=== PATIENT | female | born 1975 | race Caucasian/White ===

== ENCOUNTER 2016-08-27 14:06 | Emergency (ER) | payer OTHER ==
[~2016-08-27] VITALS: Ht 152.4 cm; Wt 84.4 kg
[~2016-08-27 14:06] MED LIST: AMOXICILLIN500 M3 PO; AMOXICILLIN500 MG PO; BUSPIRONE15 MG PO; CEPHALEXIN500 M1 PO; CIPROFLOXACIN500 MG PO; CLARITIN10 MG PO; CYCLOBENZAPRINE10 MG PO; CYCLOBENZAPRINE5 M3 PO; DOXYCYCLINE100 MG PO; EFFEXOR XR37.5 M1 PO; HORMONE PILL PO; HYDR12.5C PO; HYDROCHLOROTH12.5 M2 PO; HYDROCODONE BIT1 T11 PO; HYDROXYZINE HCL25 M1 PO; IBU800 M1 PO; INDOCIN50 MG PO; LIDEX0.05% T; MEDROL DOSEPAK4 MG PO; MOTRIN800 MG PO; MULTIVITAMIN FO1 CAP PO; Motrin,Rufen800 MG PO; NAPROSYN375 MG PO; NAPROSYN500 MG PO; NEURONTIN300 MG PO; NORCO 325 MG-51 TAB PO; PAXIL10 MG PO; PAXIL20 MG PO; PHENERGAN W/DM120 ML PO; PREDNICOT10 MG PO; PREDNISONE10 MG PO; PRILOSEC40 M1 PO; PRILOSEC40 MG PO; ULTRAM50 MG PO; VALIUM10 MG PO; VALIUM5 MG PO; VICO75300 PO; VICODIN 5/500 505 MG PO; VOLTAREN50 M1 PO; ZITHROMAX Z PA250 MG PO; ZOFRAN ODT4 MG SL; ZOLOFT25 MG PO; Zofran4 MG PO
[2016-08-27] MEDS ORDERED: BACLOFEN20 M1 PO (14:34)
[2016-08-27] MEDS ORDERED: ZYRTEC10 MG PO (16:25)
[2016-08-27] MEDS ORDERED: NAPROSYN500 MG PO (16:25)
[2016-08-27] MEDS ORDERED: CYCLOBENZAPRINE10 MG PO (16:25)
[2016-08-27] MEDS ORDERED: AMOXICILLIN500 M2 PO (16:25)
== END 2016-08-27 16:39 | disposition home or self-care (01) ==
LOC: ED 14:06
DX: S30.0XXA Contusion of lower back and pelvis, initial encounter (principal); J01.90 Acute sinusitis, unspecified; F17.200 Nicotine dependence, unspecified, uncomplicated; Z88.8 Allergy status to other drugs, medicaments and biological substances; Z88.6 Allergy status to analgesic agent; Z88.1 Allergy status to other antibiotic agents; Z91.013 Allergy to seafood; W10.9XXA Fall (on) (from) unspecified stairs and steps, initial encounter; Y93.89 Activity, other specified; Y92.89 Other specified places as the place of occurrence of the external cause; Y99.9 Unspecified external cause status

== ENCOUNTER 2016-11-17 20:52 | Emergency (ER) | payer OTHER ==
[~2016-11-17] VITALS: Wt 85.7 kg
[~2016-11-17 20:52] MED LIST changes: +AMOXICILLIN500 M2 PO; +BACLOFEN20 M1 PO; +ZYRTEC10 MG PO
[2016-11-17] MEDS ORDERED: HYDROCODONE BIT1 T11 PO (23:33)
[2016-11-17] MEDS ORDERED: ZOFRAN ODT4 MG SL (23:33)
[2016-11-17] MEDS ORDERED: CYCLOBENZAPRINE5 M3 PO (23:33)
== END 2016-11-18 01:58 | disposition home or self-care (01) ==
LOC: ED 20:52
DX: M54.16 Radiculopathy, lumbar region (principal); F17.200 Nicotine dependence, unspecified, uncomplicated; Z88.1 Allergy status to other antibiotic agents; Z91.013 Allergy to seafood; Z88.6 Allergy status to analgesic agent; Z79.899 Other long term (current) drug therapy

== ENCOUNTER 2017-01-10 16:57 | Emergency (ER) | payer OTHER ==
[~2017-01-10] VITALS: Wt 82.6 kg
[2017-01-10] MEDS ORDERED: CYCLOBENZAPRINE5 M3 PO (18:54)
== END 2017-01-10 17:24 | disposition home or self-care (01) ==
LOC: ED 16:57
DX: M54.30 Sciatica, unspecified side (principal); R60.0 Localized edema; F17.200 Nicotine dependence, unspecified, uncomplicated; Z88.1 Allergy status to other antibiotic agents; Z88.6 Allergy status to analgesic agent; Z91.013 Allergy to seafood; Z79.899 Other long term (current) drug therapy

== ENCOUNTER 2018-06-27 21:10 | Emergency (ER) | payer OTHER ==
[2018-06-27 22:32] LABS: BILIRUBIN NEGATIVE (NEGATIVE); BLOOD NEGATIVE (NEGATIVE); CLARITY CLEAR (CLEAR); COLOR YELLOW (YELLOW); GLUCOSE NEGATIVE (NEGATIVE); KETONE NEGATIVE (NEGATIVE); LEUKO ESTERASE NEGATIVE (NEGATIVE); NITRITE NEGATIVE (NEGATIVE); UROBILINOGEN 0.2 E.U./dl (0.2-1.0)
[2018-06-27 23:03] LABS: EPITHELIAL CELLS 15-20
[2018-06-27] MEDS ORDERED: NAPROSYN500 MG PO (23:23)
[2018-06-27] MEDS ORDERED: CYCLOBENZAPRINE5 M3 PO (23:23)
== END 2018-06-27 23:54 | disposition home or self-care (01) ==
LOC: ED 21:10
PROVIDERS: Emergency Medicine Emergency Medical Services
DX: M25.552 Pain in left hip (principal); M19.90 Unspecified osteoarthritis, unspecified site; M79.7 Fibromyalgia; F17.200 Nicotine dependence, unspecified, uncomplicated; G89.29 Other chronic pain; M54.5 Low back pain; Z88.1 Allergy status to other antibiotic agents; Z91.013 Allergy to seafood; Z88.6 Allergy status to analgesic agent; Z79.899 Other long term (current) drug therapy; Z88.8 Allergy status to other drugs, medicaments and biological substances

== ENCOUNTER 2019-01-30 15:18 | Emergency (ER) | payer OTHER ==
[~2019-01-30] VITALS: Ht 152.4 cm; Wt 73.5 kg
[2019-01-30] MEDS ORDERED: TRAZODONE50 MG PO (15:30)
[2019-01-30] MEDS ORDERED: ADDERALL XR 3030 MG PO (15:31)
[2019-01-30] MEDS ORDERED: NAPROSYN500 MG PO (17:20)
== END 2019-01-30 17:32 | disposition home or self-care (01) ==
LOC: ED 15:18
DX: S86.912A Strain of unspecified muscle(s) and tendon(s) at lower leg level, left leg, initial encounter (principal); F17.200 Nicotine dependence, unspecified, uncomplicated; Z88.1 Allergy status to other antibiotic agents; Z91.013 Allergy to seafood; Z88.6 Allergy status to analgesic agent; Z79.899 Other long term (current) drug therapy; W01.0XXA Fall on same level from slipping, tripping and stumbling without subsequent striking against object, initial encounter; Y93.89 Activity, other specified; Y92.89 Other specified places as the place of occurrence of the external cause; Y99.8 Other external cause status

== ENCOUNTER → 2019-01-31 | Outpatient (CLI) | payer OTHER ==
[~2019-01-31] MED LIST changes: +ADDERALL XR 3030 MG PO; +TRAZODONE50 MG PO
== END | disposition home or self-care (01) ==
LOC: ORTHO 09:56
DX: M25.552 Pain in left hip (principal)

== ENCOUNTER 2019-02-10 19:52 | Emergency (ER) | payer OTHER ==
[~2019-02-10] VITALS: Wt 81.6 kg
== END 2019-02-10 21:21 | disposition home or self-care (01) ==
LOC: ED 19:52
DX: S93.402A Sprain of unspecified ligament of left ankle, initial encounter (principal); M79.7 Fibromyalgia; G89.29 Other chronic pain; Z88.1 Allergy status to other antibiotic agents; Z91.013 Allergy to seafood; Z88.6 Allergy status to analgesic agent; Z79.899 Other long term (current) drug therapy; W23.0XXA Caught, crushed, jammed, or pinched between moving objects, initial encounter; Y93.89 Activity, other specified; Y92.89 Other specified places as the place of occurrence of the external cause; Y99.8 Other external cause status

== ENCOUNTER 2019-05-04 21:04 | Emergency (ER) | payer OTHER ==
[~2019-05-04] VITALS: Ht 152.4 cm; Wt 79.8 kg
[2019-05-05] MEDS ORDERED: CYCLOBENZAPRINE10 MG PO (00:50)
[2019-05-05] MEDS ORDERED: IBU800 MG PO (00:50)
== END 2019-05-05 02:02 | disposition home or self-care (01) ==
LOC: ED 21:04
DX: S39.012A Strain of muscle, fascia and tendon of lower back, initial encounter (principal); S70.02XA Contusion of left hip, initial encounter; M79.7 Fibromyalgia; F17.200 Nicotine dependence, unspecified, uncomplicated; Z88.1 Allergy status to other antibiotic agents; Z91.013 Allergy to seafood; Z88.8 Allergy status to other drugs, medicaments and biological substances; Z79.899 Other long term (current) drug therapy; W01.0XXA Fall on same level from slipping, tripping and stumbling without subsequent striking against object, initial encounter; Y93.01 Activity, walking, marching and hiking; Y92.89 Other specified places as the place of occurrence of the external cause; Y99.8 Other external cause status

== ENCOUNTER 2019-06-21 22:36 | Emergency (ER) | payer OTHER ==
[~2019-06-21] VITALS: Ht 165.1 cm; Wt 81.2 kg
[~2019-06-21 22:36] MED LIST changes: +IBU800 MG PO
[2019-06-21] MEDS ORDERED: IBU800 MG PO (22:55)
[2019-06-21] MEDS ORDERED: DOXYCYCLINE100 M3 PO (22:55)
== END 2019-06-21 23:13 | disposition home or self-care (01) ==
LOC: ED 22:36
DX: L02.212 Cutaneous abscess of back [any part, except buttock and flank] (principal); M79.7 Fibromyalgia; F17.200 Nicotine dependence, unspecified, uncomplicated; Z88.1 Allergy status to other antibiotic agents; Z91.013 Allergy to seafood; Z88.8 Allergy status to other drugs, medicaments and biological substances; Z79.899 Other long term (current) drug therapy

== ENCOUNTER 2019-09-01 00:37 | Emergency (ER) | payer OTHER ==
[~2019-09-01] VITALS: Ht 152.4 cm; Wt 81.6 kg
[~2019-09-01 00:37] MED LIST changes: +DOXYCYCLINE100 M3 PO
[2019-09-01] MEDS ORDERED: Motrin,Rufen800 MG PO (03:23)
== END 2019-09-01 03:56 | disposition home or self-care (01) ==
LOC: ED 00:37
DX: S39.012A Strain of muscle, fascia and tendon of lower back, initial encounter (principal); M54.2 Cervicalgia; R51 Headache; M19.90 Unspecified osteoarthritis, unspecified site; M79.7 Fibromyalgia; G89.29 Other chronic pain; Z88.1 Allergy status to other antibiotic agents; Z91.013 Allergy to seafood; Z88.8 Allergy status to other drugs, medicaments and biological substances; Z79.899 Other long term (current) drug therapy; Z79.2 Long term (current) use of antibiotics; V49.49XA Driver injured in collision with other motor vehicles in traffic accident, initial encounter; Y93.I9 Activity, other involving external motion; Y92.488 Other paved roadways as the place of occurrence of the external cause; Y99.8 Other external cause status

== ENCOUNTER 2019-11-03 11:52 | Emergency (ER) | payer OTHER ==
[~2019-11-03] VITALS: Ht 152.4 cm; Wt 78.9 kg
[2019-11-03 12:42] LABS: BASO # 0.1 10*3/uL (0.0-0.1); BASO % 0.6 % (0.0-1.0); EOS # 0.2 10*3/uL (0.0-0.4); EOS % 2.7 % (1.0-4.0); HEMATOCRIT 43.4 % (37.0-47.0); HEMOGLOBIN 14.9 g/dl (12.0-16.0); LYMPH # 2.5 10*3/uL (1.3-4.4); LYMPH % 31.7 % (27.0-41.0); MEAN CORPUSCULAR HGB 29.9 pg (27.0-31.0); MEAN CORPUSCULAR HGB CONC 34.3 g/dl (33.0-37.0); MONO # 0.4 10*3/uL (0.1-1.0); NEUT # 4.7 10*3/uL (2.3-7.9); NEUT % 59.9 % (47.0-73.0); PLATELET COUNT AUTOMATED 218 10*3/uL (130-400); RED BLOOD COUNT 4.99 10*6/uL (4.10-5.10); RED CELL DISTRI WIDTH 12.3 % (0-14.5); WHITE BLOOD COUNT 7.9 10*3/uL (4.8-10.8)
[2019-11-03 12:58] LABS: ALBUMIN 3.4 gm/dl (3.1-4.5); ALKALINE PHOSPHATASE 61 U/L (45-117); BUN 11 mg/dl (7-24); CHLORIDE 108 mmol/L (98-107); CREATININE 0.76 mg/dL (0.55-1.02); SGOT/AST 11 IU/L (3-35); SGPT/ALT 25 U/L (12-78); SODIUM 140 mmol/L (136-145); TOTAL PROTEIN 6.6 gm/dL (6.4-8.2)
[2019-11-03 13:00] LABS: B-hCG (QUALITATIVE) NEGATIVE (NEGATIVE)
[2019-11-03] MEDS ORDERED: AMOXICILLIN500 M2 PO (14:04)
== END 2019-11-03 14:09 | disposition home or self-care (01) ==
LOC: ED 11:52
PROVIDERS: Physician Assistant
DX: R07.0 Pain in throat (principal); H92.02 Otalgia, left ear; Z88.8 Allergy status to other drugs, medicaments and biological substances; Z91.013 Allergy to seafood; Z79.899 Other long term (current) drug therapy; Z79.2 Long term (current) use of antibiotics

== ENCOUNTER 2020-03-05 17:41 | Emergency (ER) | payer OTHER ==
[~2020-03-05] VITALS: Ht 152.4 cm; Wt 81.6 kg
[2020-03-05] MEDS ORDERED: IBU800 MG PO (20:21)
== END 2020-03-05 20:20 | disposition home or self-care (01) ==
LOC: ED 17:41
DX: S93.402A Sprain of unspecified ligament of left ankle, initial encounter (principal); S86.912A Strain of unspecified muscle(s) and tendon(s) at lower leg level, left leg, initial encounter; M19.90 Unspecified osteoarthritis, unspecified site; F32.9 Major depressive disorder, single episode, unspecified; F41.9 Anxiety disorder, unspecified; Z91.013 Allergy to seafood; Z88.8 Allergy status to other drugs, medicaments and biological substances; Z79.899 Other long term (current) drug therapy; W19.XXXA Unspecified fall, initial encounter; Y93.89 Activity, other specified; Y92.89 Other specified places as the place of occurrence of the external cause; Y99.8 Other external cause status

== ENCOUNTER 2020-06-30 10:37 | Emergency (ER) | payer OTHER ==
[~2020-06-30] VITALS: Ht 154.9 cm; Wt 81.6 kg
[2020-06-30] MEDS ORDERED: CLINDAMYCIN HC300 MG PO (12:15)
== END 2020-06-30 12:26 | disposition home or self-care (01) ==
LOC: ED 10:37
DX: L02.212 Cutaneous abscess of back [any part, except buttock and flank] (principal); Z88.8 Allergy status to other drugs, medicaments and biological substances; Z91.013 Allergy to seafood; Z79.899 Other long term (current) drug therapy

== ENCOUNTER → 2020-09-01 | Outpatient (CLI) | payer OTHER ==
[~2020-09-01] MED LIST changes: +CLINDAMYCIN HC300 MG PO
== END | disposition home or self-care (01) ==
LOC: COVID19 13:21
PROVIDERS: ATTEND Internal Medicine
DX: Z20.822 Contact with and (suspected) exposure to COVID-19 (principal)